=== PATIENT | male | born 1970 | race Caucasian/White ===

== ENCOUNTER 2016-09-20 05:29 | Emergency (ER) | payer OTHER ==
[2016-09-20] MEDS ORDERED: RABIES VACCINE HUMAN 2.5 INTERNATIONAL UNITS/ML VIAL (90675) As Ordered ONE (07:06)
--- NOTE | 2016-09-20 07:21 | EDDOCDS ---
Nurse's Notes [facility] Name: Abhay Moore Age: 45 yrs Sex: Male : 1970 Arrival Date: 09/20/2016 Time: 05:29 Bed 8 Private MD: Diagnosis: Contact with and (suspected) exposure to rabies Presentation: 09/20 05:42 Presenting complaint: Patient states: Was transporting a stray cat. Cat got out at a kmg1 rest stop. Patient went to recover the cat and got bit. Louise Molina administered the first dose of rabies vaccine. Is due for second dose today. Suicide/Homicide risk assessment- the patient denies having any suicidal and/or homicidal ideations and does not present with any other emotional, behavioral or mental health complaints. Status: The patient is an active duty ramp service employee. Transition of care: patient was not received from another setting of care. 05:42 Acuity: ANNEL Level 5 [facility] 05:42 Method Of Arrival: Walkin/Carried/Asstd [facility] 07:19 Adult Sepsis Screening: The patient does not have new or worsening altered mentation. dls Patient's respiratory rate is less than 22. Systolic blood pressure is greater than 100. Patient has a qSOFA score of 0- Negative Sepsis Screen. Triage Assessment: 05:49 General: Appears in no apparent distress, comfortable, Behavior is appropriate for age, kmg1 cooperative, pleasant. General:. Pain: Denies pain. Pt Declines HIV testing. Derm: healing cat bite left hand. Historical: - Allergies: No known drug Allergies; - Home Meds: 1. metformin 500 mg Oral tab 1 tab 2 times per day (Last dose: 09/20/2016 05:15) 2. lisinopril 40 mg Oral tab 1 tab once daily (Last dose: 09/20/2016 05:15) 3. hydrochlorothiazide 25 mg Oral tab 1 tab once daily (Last dose: 09/20/2016 05:15) 4. verapamil 120 mg Oral TbER 1 tab once daily (Last dose: 09/20/2016 05:15) - PMHx: Diabetes - NIDDM: controlled; Hypertension; - PSHx: Tonsillectomy (1974); Lithotripsy (2003); Lasik Surgery (2004); Repair deviated septum (2013); - Social history: Smoking status: Patient states was never smoker of tobacco. No barriers to communication noted, The patient speaks fluent Albanian, Speaks appropriately for age. - Family history: Not pertinent. - : The pt / caregiver states he / she is not on anticoagulants. Home medication list is obtained from the patient. - Exposure Risk Screening:: None identified. Screenin:18 Screening information is obtained from the patient. Fall risk: No risks identified. af2 Assistance ADL's: requires no assistance with activities of daily living. Abuse/DV Screen: The patient / caregiver reports he/she is: not in a situation that causes fear, pain or injury. Nutritional screening: No deficits noted. Advance Directives: Currently, there is no health care proxy. home support is adequate. Assessment: 06:17 General: Appears in no apparent distress, comfortable, Behavior is appropriate for age, af2 cooperative. Awake, alert, oriented. Skin warm and dry. Moves all extremities. Respirations unlabored. No apparent distress. The patient / caregiver is instructed regarding the plan of care and ED course. Physical assessment to be completed by HUSSEIN/FRANCIA. Vital Signs: 05:49 BP 137 / 89; Pulse 76; Resp 16; Temp 97.6(O); Pulse Ox 94% ; Weight 95.25 kg (R); [facility] Height 5 ft. 8 in. (172.72 cm) (R); Pain 0/10; 05:49 Body Mass Index 31.93 (95.25 kg, 172.72 cm) [facility] Vitals: 05:49 Log In Time: September 20, 2016 at 05:30. [facility] ED Course: 05:30 Patient visited by Ayala Bettencourt Reg. hs2 05:30 Patient moved to [facility] 05:45 Triage Initiated [facility] 05:53 Patient visited by Kaylynn Valentine RN. [facility] 05:53 Josefina Ortiz,RN is Primary Nurse. [facility] 05:53 Patient moved to [facility] 06:18 Patient visited by Josefina Ortiz RN. af2 06:18 The patient / caregiver is instructed regarding the plan of care and ED course. Patient af2 has correct armband on for positive identification. Placed in gown. 06:18 No IV's were initiated during this patient's visit. No procedures done that require af2 assistance. 06:56 Mahad Young PA-C is PHCP. cc10 06:56 Luis Farooq DO is Attending Physician. cc10 06:56 Patient visited by Mahad Young PA-C. cc10 06:56 Patient visited by Mahad Young PA-C. cc10 07:03 Louise Molina [facility] is Referral Physician. cc10 Administered Medications: 07:10 Drug: Rabies Vaccine, Human Diploid (PF) 2.5 units [rabies vaccine,human diploid (PF) dls 2.5 unit intramuscular solution (2.5 units)] {Lithographic Stripper: Sanofi Pasteur ([employer]). Exp: 04/30/2017. Lot #: [id number]. } Route: IM; Site: right deltoid; 07:20 Follow up: Response: Pt left department before re-evaluation is appropriate dls Order Results: There are currently no results for this order. Outcome: 07:03 Discharge ordered by Provider. cc10 07:18 The following High Risk Discharge criteria are identified: None. Discharged to home dls ambulatory. Condition: stable. Discharge instructions given to patient, Instructed on discharge instructions, follow up and referral plans. Demonstrated understanding of instructions, Pt was receptive of discharge instructions/ teaching. No special radiology studies were completed. 07:19 Discharge Assessment: Patient awake, alert and oriented x 3. No cognitive and/or dls functional deficits noted. Patient verbalized understanding of disposition instructions. patient administered narcotics - no. The following High Risk Discharge criteria are identified: None. Discharged to home ambulatory. Property sent home with patient. 07:20 Patient left the ED. dls Signatures: Kaylynn Valentine RN RN kmg1 Chinyere Yan RN RN dls Mahad Young PA-C PA-C cc10 Josefina OrtizRN RN af2 Ayala Bettencourt, Reg Reg hs2 MTDD
--- NOTE | 2016-09-20 07:21 | EDDOCDS ---
Physician Documentation [facility] Name: Abhay Moore Age: 45 yrs Sex: Male : 1970 Arrival Date: 09/20/2016 Time: 05: Bed 8 Private MD: Disposition: 09/20/16 07:03 Discharged to Home/Self Care. Impression: Contact with and (suspected) exposure to rabies. - Condition is Stable. - Discharge Instructions: VIS, Rabies - CDC. - Medication Reconciliation form. - Follow up: Louise Molina [facility]; When: Call to arrange an appointment; Reason: Wound/Symptom Recheck, Recheck today's complaints, Continuance of care. - Problem is an ongoing problem. - Symptoms are unchanged. Historical: - Allergies: No known drug Allergies; - Home Meds: 1. metformin 500 mg Oral tab 1 tab 2 times per day (Last dose: 09/20/2016 05:15) 2. lisinopril 40 mg Oral tab 1 tab once daily (Last dose: 09/20/2016 05:15) 3. hydrochlorothiazide 25 mg Oral tab 1 tab once daily (Last dose: 09/20/2016 05:15) 4. verapamil 120 mg Oral TbER 1 tab once daily (Last dose: 09/20/2016 05:15) - PMHx: Diabetes - NIDDM: controlled; Hypertension; - PSHx: Tonsillectomy (1974); Lithotripsy (2003); Lasik Surgery (2004); Repair deviated septum (2013); - Social history: Smoking status: Patient states was never smoker of tobacco. No barriers to communication noted, The patient speaks fluent Eritrean, Speaks appropriately for age. - Family history: Not pertinent. - : The pt / caregiver states he / she is not on anticoagulants. Home medication list is obtained from the patient. - Exposure Risk Screening:: None identified. Vital Signs: 09/20 05:49 BP 137 / 89; Pulse 76; Resp 16; Temp 97.6(O); Pulse Ox 94% ; Weight 95.25 kg / 209.99 kmg1 lbs (R); Height 5 ft. 8 in. (172.72 cm) (R); Pain 0/10; 05:49 Body Mass Index 31.93 (95.25 kg, 172.72 cm) kmg1 MDM: 07:02 Rabies Vaccine, Human Diploid (PF) 2.5 units IM once ordered. cc10 Administered Medications: 07:10 Drug: Rabies Vaccine, Human Diploid (PF) 2.5 units [rabies vaccine,human diploid (PF) dls 2.5 unit intramuscular solution (2.5 units)] {Ore Washer: Sanofi Pasteur ([employer]is). Exp: 04/30/2017. Lot #: [id number]. } Route: IM; Site: right deltoid; 07:20 Follow up: Response: Pt left department before re-evaluation is appropriate dls Signatures: Kaylynn Valentine, RN RN kmg1 Chinyere Yan RN RN dls Mahad Young, PA-C PA-C cc10 Josefina OrtizRN RN af2 MTDD
--- NOTE | 2016-09-22 08:21 | EDDOCDS ---
Nurse's Notes [facility] Name: Abhay Moore Age: 45 yrs Sex: Male : 1970 Arrival Date: 09/20/2016 Time: 05:29 Bed 8 Private MD: Diagnosis: Contact with and (suspected) exposure to rabies Presentation: 09/20 05:42 Presenting complaint: Patient states: Was transporting a stray cat. Cat got out at a kmg1 rest stop. Patient went to recover the cat and got bit. Louise Molina administered the first dose of rabies vaccine. Is due for second dose today. Suicide/Homicide risk assessment- the patient denies having any suicidal and/or homicidal ideations and does not present with any other emotional, behavioral or mental health complaints. Status: The patient is an active duty coordinator of health services. Transition of care: patient was not received from another setting of care. 05:42 Acuity: ANNEL Level 5 [facility] [place] [place] 05:42 Method Of Arrival: Walkin/Carried/Asstd [facility] [place] 07:19 Adult Sepsis Screening: The patient does not have new or worsening altered mentation. dls Patient's respiratory rate is less than 22. Systolic blood pressure is greater than 100. Patient has a qSOFA score of 0- Negative Sepsis Screen. Triage Assessment: 05:49 General: Appears in no apparent distress, comfortable, Behavior is appropriate for age, kmg1 cooperative, pleasant. General:. Pain: Denies pain. Pt Declines HIV testing. Derm: healing cat bite left hand. Historical: - Allergies: No known drug Allergies; - Home Meds: 1. metformin 500 mg Oral tab 1 tab 2 times per day (Last dose: 09/20/2016 05:15) 2. lisinopril 40 mg Oral tab 1 tab once daily (Last dose: 09/20/2016 05:15) 3. hydrochlorothiazide 25 mg Oral tab 1 tab once daily (Last dose: 09/20/2016 05:15) 4. verapamil 120 mg Oral TbER 1 tab once daily (Last dose: 09/20/2016 05:15) - PMHx: Diabetes - NIDDM: controlled; Hypertension; - PSHx: Tonsillectomy (1974); Lithotripsy (2003); Lasik Surgery (2004); Repair deviated septum (2013); - Social history: Smoking status: Patient states was never smoker of tobacco. No barriers to communication noted, The patient speaks fluent Croatian, Speaks appropriately for age. - Family history: Not pertinent. - : The pt / caregiver states he / she is not on anticoagulants. Home medication list is obtained from the patient. - Exposure Risk Screening:: None identified. Screenin:18 Screening information is obtained from the patient. Fall risk: No risks identified. af2 Assistance ADL's: requires no assistance with activities of daily living. Abuse/DV Screen: The patient / caregiver reports he/she is: not in a situation that causes fear, pain or injury. Nutritional screening: No deficits noted. Advance Directives: Currently, there is no health care proxy. home support is adequate. Assessment: 06:17 General: Appears in no apparent distress, comfortable, Behavior is appropriate for age, af2 cooperative. Awake, alert, oriented. Skin warm and dry. Moves all extremities. Respirations unlabored. No apparent distress. The patient / caregiver is instructed regarding the plan of care and ED course. Physical assessment to be completed by HUSSEIN/FRANCIA. Vital Signs: 05:49 BP 137 / 89; Pulse 76; Resp 16; Temp 97.6(O); Pulse Ox 94% ; Weight 95.25 kg (R); [facility] [place] Height 5 ft. 8 in. (172.72 cm) (R); Pain 0/10; 05:49 Body Mass Index 31.93 (95.25 kg, 172.72 cm) [facility] [place] Vitals: 05:49 Log In Time: September 20, 2016 at 05:30. [facility] [place] ED Course: 05:30 Patient visited by Ayala Bettencourt Reg. hs2 05:30 Patient moved to [facility] 05:45 Triage Initiated [facility] [place] 05:53 Patient visited by Kaylynn Valentine RN. [facility] [place] 05:53 Josefina Ortiz,RN is Primary Nurse. [facility] [place] 05:53 Patient moved to [facility] 06:18 Patient visited by Josefina Ortiz RN. af2 06:18 The patient / caregiver is instructed regarding the plan of care and ED course. Patient af2 has correct armband on for positive identification. Placed in gown. 06:18 No IV's were initiated during this patient's visit. No procedures done that require af2 assistance. 06:56 Mahad Young PA-C is PHCP. cc10 06:56 Luis Farooq DO is Attending Physician. cc10 06:56 Patient visited by Mahad Young PA-C. cc10 06:56 Patient visited by Mahad Young PA-C. cc10 07:03 Louise Molina [facility] is Referral Physician. cc10 08:11 ON LICENSE OF [facility] Payment Agreement was scanned into [employer] and attached to record. mm15 08:36 Patient name changed from Abhay\S\\S\Oscar\S\ to Abhay\S\ \S\Oscar. EDMS 20:30 T-Sheet-- Draft Copy was scanned into [employer] and attached to record. klr Administered Medications: 07:10 Drug: Rabies Vaccine, Human Diploid (PF) 2.5 units [rabies vaccine,human diploid (PF) dls 2.5 unit intramuscular solution (2.5 units)] {Hvac Design Mechanical Engineer: [employer] ([employer]). Exp: 04/30/2017. Lot #: [id number]. } Route: IM; Site: right deltoid; 07:20 Follow up: Response: Pt left department before re-evaluation is appropriate dls Order Results: There are currently no results for this order. Outcome: 07:03 Discharge ordered by Provider. cc10 07:18 The following High Risk Discharge criteria are identified: None. Discharged to home dls ambulatory. Condition: stable. Discharge instructions given to patient, Instructed on discharge instructions, follow up and referral plans. Demonstrated understanding of instructions, Pt was receptive of discharge instructions/ teaching. No special radiology studies were completed. 07:19 Discharge Assessment: Patient awake, alert and oriented x 3. No cognitive and/or dls functional deficits noted. Patient verbalized understanding of disposition instructions. patient administered narcotics - no. The following High Risk Discharge criteria are identified: None. Discharged to home ambulatory. Property sent home with patient. 07:20 Patient left the ED. dls Signatures: Dispatcher [facility] EDPA Kaylynn Valentine RN RN kmg1 Chinyere Yan RN RN dls Jose Stanley mm15 Mahad Young PA-C PA-C cc10 Josefina Ortiz RN RN af2 Ayala Bettencourt, Reg Reg hs2 Shannon Mary klr Chart Complete MTDD
--- NOTE | 2016-09-22 08:21 | EDDOCDS ---
Physician Documentation [facility] Name: Abhay Moore Age: 45 yrs Sex: Male : 1970 Arrival Date: 09/20/2016 Time: 05: Bed 8 Private MD: Disposition: 09/20/16 07:03 Discharged to Home/Self Care. Impression: Contact with and (suspected) exposure to rabies. - Condition is Stable. - Discharge Instructions: VIS, Rabies - CDC. - Medication Reconciliation form. - Follow up: Louise Molina [facility]; When: Call to arrange an appointment; Reason: Wound/Symptom Recheck, Recheck today's complaints, Continuance of care. - Problem is an ongoing problem. - Symptoms are unchanged. Historical: - Allergies: No known drug Allergies; - Home Meds: 1. metformin 500 mg Oral tab 1 tab 2 times per day (Last dose: 09/20/2016 05:15) 2. lisinopril 40 mg Oral tab 1 tab once daily (Last dose: 09/20/2016 05:15) 3. hydrochlorothiazide 25 mg Oral tab 1 tab once daily (Last dose: 09/20/2016 05:15) 4. verapamil 120 mg Oral TbER 1 tab once daily (Last dose: 09/20/2016 05:15) - PMHx: Diabetes - NIDDM: controlled; Hypertension; - PSHx: Tonsillectomy (1974); Lithotripsy (2003); Lasik Surgery (2004); Repair deviated septum (2013); - Social history: Smoking status: Patient states was never smoker of tobacco. No barriers to communication noted, The patient speaks fluent Saudi Arabian, Speaks appropriately for age. - Family history: Not pertinent. - : The pt / caregiver states he / she is not on anticoagulants. Home medication list is obtained from the patient. - Exposure Risk Screening:: None identified. Vital Signs: 09/20 05:49 BP 137 / 89; Pulse 76; Resp 16; Temp 97.6(O); Pulse Ox 94% ; Weight 95.25 kg / 209.99 kmg1 lbs (R); Height 5 ft. 8 in. (172.72 cm) (R); Pain 0/10; 05:49 Body Mass Index 31.93 (95.25 kg, 172.72 cm) kmg1 MDM: 07:02 Rabies Vaccine, Human Diploid (PF) 2.5 units IM once ordered. cc10 08:10 Financial registration complete. mm15 08:11 [facility] Payment Agreement was scanned into [employer] and attached to record. mm15 20:30 T-Sheet-- Draft Copy was scanned into [employer] and attached to record. klr Administered Medications: 07:10 Drug: Rabies Vaccine, Human Diploid (PF) 2.5 units [rabies vaccine,human diploid (PF) dls 2.5 unit intramuscular solution (2.5 units)] {Reefer Engineer: Sanofi Pasteur ([employer]). Exp: 04/30/2017. Lot #: [id number]. } Route: IM; Site: right deltoid; 07:20 Follow up: Response: Pt left department before re-evaluation is appropriate dls Signatures: Kaylynn Valentine, RN RN kmg1 Chinyere Yan RN RN dls Jose Stanley mm15 Mahad Young, PA-C PA-C cc10 Josefina Ortiz RN RN af2 Shannon Mary klr The chart was reviewed and I authenticate all verbal orders and agree with the evaluation and treatment provided.Attachments: 08:11 [facility] Payment Agreement mm15 20:30 T-Sheet-- Draft Copy klr Chart Complete MTDD
--- NOTE | 2016-09-22 08:21 | EDDOCDS ---
Physician Documentation [facility] Name: Abhay Moore Age: 45 yrs Sex: Male : 1970 Arrival Date: 09/20/2016 Time: 05: Bed 8 Private MD: Disposition: 09/20/16 07:03 Discharged to Home/Self Care. Impression: Contact with and (suspected) exposure to rabies. - Condition is Stable. - Discharge Instructions: VIS, Rabies - CDC. - Medication Reconciliation form. - Follow up: Louise Molina [facility]; When: Call to arrange an appointment; Reason: Wound/Symptom Recheck, Recheck today's complaints, Continuance of care. - Problem is an ongoing problem. - Symptoms are unchanged. Historical: - Allergies: No known drug Allergies; - Home Meds: 1. metformin 500 mg Oral tab 1 tab 2 times per day (Last dose: 09/20/2016 05:15) 2. lisinopril 40 mg Oral tab 1 tab once daily (Last dose: 09/20/2016 05:15) 3. hydrochlorothiazide 25 mg Oral tab 1 tab once daily (Last dose: 09/20/2016 05:15) 4. verapamil 120 mg Oral TbER 1 tab once daily (Last dose: 09/20/2016 05:15) - PMHx: Diabetes - NIDDM: controlled; Hypertension; - PSHx: Tonsillectomy (1974); Lithotripsy (2003); Lasik Surgery (2004); Repair deviated septum (2013); - Social history: Smoking status: Patient states was never smoker of tobacco. No barriers to communication noted, The patient speaks fluent Burmese, Speaks appropriately for age. - Family history: Not pertinent. - : The pt / caregiver states he / she is not on anticoagulants. Home medication list is obtained from the patient. - Exposure Risk Screening:: None identified. Vital Signs: 09/20 05:49 BP 137 / 89; Pulse 76; Resp 16; Temp 97.6(O); Pulse Ox 94% ; Weight 95.25 kg / 209.99 kmg1 lbs (R); Height 5 ft. 8 in. (172.72 cm) (R); Pain 0/10; 05:49 Body Mass Index 31.93 (95.25 kg, 172.72 cm) kmg1 MDM: 07:02 Rabies Vaccine, Human Diploid (PF) 2.5 units IM once ordered. cc10 08:10 Financial registration complete. mm15 08:11 [facility] Payment Agreement was scanned into [employer] and attached to record. mm15 20:30 T-Sheet-- Draft Copy was scanned into [employer] and attached to record. klr Administered Medications: 07:10 Drug: Rabies Vaccine, Human Diploid (PF) 2.5 units [rabies vaccine,human diploid (PF) dls 2.5 unit intramuscular solution (2.5 units)] {Belt Cleaner: Sanofi Pasteur ([employer]is). Exp: 04/30/2017. Lot #: [id number]. } Route: IM; Site: right deltoid; 07:20 Follow up: Response: Pt left department before re-evaluation is appropriate dls Signatures: Kaylynn Valentine, RN RN kmg1 Chinyere Yan RN RN dls Jose Stanley mm15 Mahad Young, PA-C PA-C cc10 Josefina Ortiz RN RN af2 Shannon Mary klr The chart was reviewed and I authenticate all verbal orders and agree with the evaluation and treatment provided.Attachments: 08:11 [facility] Payment Agreement mm15 20:30 T-Sheet-- Draft Copy klr Chart Complete MTDD
== END 2016-09-20 07:20 | disposition home or self-care (01) ==
LOC: M ED 05:29
DX: Z20.3 Contact with and (suspected) exposure to rabies (principal); I10 Essential (primary) hypertension; E11.9 Type 2 diabetes mellitus without complications; Z79.899 Other long term (current) drug therapy; Z79.84 Long term (current) use of oral hypoglycemic drugs

== ENCOUNTER → 2017-03-01 | Day surgery (SDC) | payer OTHER ==
[~2017-03-01] VITALS: Ht 170.2 cm; Wt 89.8 kg
[~2017-03-01] MED LIST: CHLOROPROCAINE 2 % INJ PRES.FREE 20 ML VIAL (J2400) As Ordered ONE; CHLOROPROCAINE PRES. FREE 3% INJ 20 ML VIAL (J2400) As Ordered ONE; KETOROLAC 60 MG/2 ML VIAL (J1885) As Ordered ONE; LIDOCAINE 2% INJ 100 MG/5 ML SYRINGE As Ordered ONE; LISI20TA3 PO; LR 1,000 ML IV SCH; METF850T4 PO; METOCLOPRAMIDE INJ 10MG/2ML VIAL (J2765) As Ordered ONE; MIDAZOLAM INJ 2 MG/2 ML VIAL (J2250) As Ordered ONE; NORCO, ANEXSIA 5/325MG TABLET (HYDROcodone/ACETAMINOPHEN) PO PRN; ONDANSETRON 4MG/2ML VIAL (J2405) As Ordered ONE; ONDANSETRON 4MG/2ML VIAL (J2405) IV PRN; PHENYLephrine HCL 500 MCG/5 ML (100MCG/ML) SYRINGE (J2370) As Ordered ONE; PROPOFOL 200 MG/20 ML VIAL As Ordered ONE; SILVER NITRATE APPLICATOR As Ordered ONE; SILVER NITRATE APPLICATOR TOP ONE; VERA1TAB10 PO; dexameTHASONE 4 MG/ML 1ML VIAL (J1100) As Ordered ONE; ePHEDrine SULFATE 25 MG/5 ML(5MG/ML) SYRINGE As Ordered ONE; fentaNYL 100 MCG/2 ML INJECTION (J3010) As Ordered ONE; fentaNYL 100 MCG/2 ML INJECTION (J3010) IV PRN
--- NOTE | 2017-03-01 08:38 | RO ---
DATE OF PROCEDURE: 03/01/2017 PREOPERATIVE DIAGNOSIS: Pilonidal cyst. POSTOPERATIVE DIAGNOSIS: Pilonidal cyst. PROCEDURE: Pilonidal cystectomy. SURGEON: Mariusz Blanc DO RESEARCH AND DEVELOPMENT RESEARCHER: None. ANESTHESIA: Spinal. ESTIMATED BLOOD LOSS (EBL): 5. COMPLICATIONS: None. INDICATION FOR PROCEDURE: The patient is a 46-year-old male who presents with a history of pilonidal cyst that has been recurrent. Recommendation to proceed with pilonidal cystectomy. Risks and benefits of the procedure not limited but including bleeding, infection, cyst recurrence, damage to surrounding structures, and need for further surgery were discussed in detail with the patient. Informed consent was obtained, and procedure was planned. DESCRIPTION OF PROCEDURE: The patient brought back to operating room #7. After sufficient sedation, the peroneal and presacral area were sterilely prepped and draped with Betadine. Next, time-out was done confirm proper patient and proper procedure. Following that, a #15 blade scalpel was used to make an elliptical incision around the sinus tract openings and the cyst that was just to the left of midline. Once this was completed, electrocautery was used to circumferentially dissect through the subcutaneous tissues down to level of the presacral fascia. Once this was all completed, the cyst and sinus tracts were all removed and one specimen. The wound's cavity was then cauterized to control bleeding. Once all hemostasis was achieved, the wound was packed with 4 x 4s and covered with gauze. The patient was then awakened from anesthesia and sent to postanesthesia care unit (PACU) in stable condition.
[2017-03-01 10:40] VITALS: BP 125/69
== END | disposition home or self-care (01) ==
LOC: M SDC 05:50
PROVIDERS: ATTEND Surgery
DX: L05.91 Pilonidal cyst without abscess (principal); I10 Essential (primary) hypertension; E11.9 Type 2 diabetes mellitus without complications; F43.10 Post-traumatic stress disorder, unspecified; R06.83 Snoring; G47.33 Obstructive sleep apnea (adult) (pediatric); J31.0 Chronic rhinitis; J34.2 Deviated nasal septum; Z87.891 Personal history of nicotine dependence; Z79.899 Other long term (current) drug therapy; Z79.84 Long term (current) use of oral hypoglycemic drugs
CPT/HCPCS: 11771; 88304; J0690; J1100; J1885; J2250; J2370; J2400; J2405; J2765; J3010